=== PATIENT | male | born 1965 | race African-American/Black ===

== ENCOUNTER 2024-08-20 08:22 | Emergency (ER) | payer OTHER, SELFPAY ==
[2024-08-20] VITALS (9 sets, daily range): BP systolic 183–242; BP diastolic 100–121; PULSE 92–109; RESP 18–20; TEMP 37.2–37.4; O2SAT 94–98; BMI 33.2
--- NOTE | 2024-08-20 08:43 | DI.RAD.S_ITS ---
PROCEDURE: XR CHEST 1V INDICATIONS: suspected sepsis TECHNIQUE: One view of the chest was acquired. COMPARISON: None. FINDINGS: Surgical changes and devices: None. Lungs and pleura: Lungs are clear. No pleural effusions or pneumothorax. Mediastinum: Mediastinal contours appear normal. Heart size is normal. Bones and chest wall: No suspicious bony lesions. Overlying soft tissues appear unremarkable. IMPRESSION: No acute cardiopulmonary abnormality is seen. Dictated by: Dheeraj Carson M.D. on 08/20/2024 at 9:24 Approved by: Dheeraj Carson M.D. on 08/20/2024 at 9:24
--- NOTE | 2024-08-20 08:48 | EKG_ITS ---
[facility] [address] [address] Test Date: 2024-08-20 Pat Name: Nelson Valenzuela Department: [facility] Room: Gender: Male [employer]: : [id number] Requested By: Order Number: [id number] Reading MD: Simone Pacheco MD Measurements Intervals [place] Rate: 100 P: 58 MD: 144 QRS: -34 QRSD: 86 T: 18 QT: 354 QTc: 456 Interpretive Statements Normal sinus rhythm Left axis deviation Electronically Signed On 08-20-2024 11:59:01 PST by Simone Pacheco MD
--- NOTE | 2024-08-20 09:34 | ED_ITS ---
HPI - URI/Sore Throat General Chief Complaint: Fever Stated Complaint: Upper respiratory symptoms Time Seen by Provider: 08/20/24 09:33 Source: patient Mode of arrival: Ambulatory History of Present Illness HPI Narrative: Patient is a 58-year-old female with history of hypertension but he has not in his medication for at least 6 months presenting today with fever chills and cough ongoing for 1 week. He states that he traveled to [place] for about 10 days and came back 5 days ago. Since then he has had fever and cough upper respiratory like symptoms. He has had a temperature of 101? at home but is currently 99. He has a slight headache. He does report some pain behind his left ear directly postauricular. No real ear pain reports some popping crackling in his ears as well. He is keeping fluids down he has no nausea or vomiting. But does have some decrease in appetite. Reports he is worried about his blood pressure which is quite elevated with a systolic greater than 200 and a diastolic greater than 100. However he was noncompliant with his medications he has not checked his blood pressure in more than 1 month. Related Data Previous Rx's Medication Instructions Recorded hydrochlorothiazide 25 mg tablet 25 mg PO DAILY #30 tabs 08/20/24 Allergies Allergy/AdvReac Type Severity Reaction Status Date / Time No Known Drug Allergies Allergy Verified 08/20/24 09:39 Patient History Social History Smoking Status: Former smoker Smoking Status: Former smoker Exam Initial Vital Signs Initial Vital Signs: Vital Signs Temperature 99.3 F 08/20/24 08:32 Pulse Rate 109 H 08/20/24 08:32 Respiratory Rate 18 08/20/24 08:32 Blood Pressure 242/121 H 08/20/24 08:32 Pulse Oximetry 98 08/20/24 08:32 Oxygen Delivery Method Room Air 08/20/24 08:32 GENERAL: Alert 58-year-old male and in no acute distress. HEENT: Head atraumatic,EOMI, pupils reactive, face symmetric, moist mucous membranes EAR: Left actual mastoid tenderness tender of further behind Left ear does not show any significant erythema or fluid behind tympanic membrane ear canal is slightly swollen but no gross drainage Right ear is within normal limits NECK: No meningeal signs CARDIOVASCULAR: Regular rate and rhythm without murmurs, rubs or gallops. RESPIRATORY: Breath sounds equal bilaterally, no wheezes rales or rhonchi. No conversational dyspnea ABDOMEN: Soft, nontender. Normoactive bowel sounds all 4 quadrants. No guarding or rebound. EXTREMITIES: Normal range of motion, no clubbing or edema. Neurovascularly intact NEUROLOGICAL: Alert and oriented x4.Normal gait and speech. Cranial nerves II through XII grossly intact. SKIN: Warm, dry, no laceration, no petechiae, no rashes or lesions. Course Orders Ordered: Discontinued Medications Sodium Chloride (Normal Saline 0.9%) 1,000 mls @ 1,000 mls/hr IV BOLUS ONE Stop: 08/20/24 09:42 Last Infusion: 08/20/24 11:37 Dose: Infused Documented By: Admin: 08/20/24 09:35 Dose: 1,000 mls/hr Documented By: AZUCENA Ondansetron HCl (Ondansetron 4 Mg/2 Ml Inj) 4 mg IV NOW PRN PRN Reason: Nausea And Vomiting Ondansetron HCl (Ondansetron 4 Mg Odt) 4 mg SL NOW PRN PRN Reason: Nausea And Vomiting Vital Signs Vital signs: Vital Signs - 8 hr 08/20/24 11:00 08/20/24 11:00 08/20/24 11:02 Temperature 99 F Pulse Rate 97 H Respiratory Rate 20 Blood Pressure 196/118 H Pulse Oximetry 97 08/20/24 11:30 08/20/24 11:30 Temperature Pulse Rate 92 H Respiratory Rate 18 Blood Pressure 191/105 H Pulse Oximetry 94 MDM - URI/Sore Throat Lab Data 08/20/24 09:20 08/20/24 09:20 Labs: Lab Results 08/20/24 08/20/24 Range/Units 08:40 09:20 WBC 11.1 H (4.5-11.0) X10^3/uL RBC 5.61 (4.5-5.9) X10^6/uL Hgb 17.7 H (13.5-17.5) g/dL Hct 50.3 (41-53) % MCV 89.7 (80-100) fL MCH 31.5 (26-34) PG MCHC 35.2 (30-36) % RDW 13.4 (11.6-14.8) % Plt Count 316 (150-400) X10^3/uL Neut % (Auto) 61.1 (50-75) % Lymph % (Auto) 24.5 L (25-40) % [place] % (Auto) 12.3 (3-14) % Eos % (Auto) 1.3 L (2-4) % Baso % (Auto) 0.8 (0-2) % Neut # (Auto) 6800 (1834-9870) /uL Lymph # (Auto) 2700 (3313-1153) /uL [place] # (Auto) 1400 H (0-900) /uL Eos # (Auto) 100 (0-450) /uL Baso # (Auto) 100 (0-100) /uL PT 17.5 H (9.4-12.5) SECONDS INR 1.6 H (0.9-1.3) APTT 51 H (25.1-36.5) SECONDS D-Dimer 958 H (<500) ng/ml Sodium 137 (137-145) mmol/L Potassium 3.6 (3.4-5.1) mmol/L Chloride 101 (98-107) mmol/L Carbon Dioxide 28 (22-32) mmol/L BUN 6 L (9-20) mg/dL Creatinine 0.72 (0.66-1.25) mg/dL Estimated GFR > 60 (>60) mL/min BUN/Creatinine Ratio 8.3 (6-22) Glucose 109 H (70-100) mg/dL Lactate 0.9 (0.7-2.1) mmol/L Calcium 9.0 (8.4-10.2) mg/dL Total Bilirubin 0.9 (0.2-1.3) mg/dL AST 43 (17-59) IU/L ALT 33 (<50) IU/L Alkaline Phosphatase 97 (38-126) U/L Total Protein 10.2 H (6.3-8.2) g/dL Albumin 4.5 (3.5-5.0) g/dL Globulin 5.7 H (1.7-4.1) g/dL Albumin/Globulin Ratio 0.8 L (1.0-2.8) Lipase 82 (23-300) U/L Procalcitonin 0.056 (<0.5) ng/mL Chlamy pneumoniae PCR Not detected (Not Detect) Adenovirus (PCR) Not detected (Not Detect) B. pertussis DNA (PCR) Not detected (Not Detect) B.parapertussis DNA PCR Not detected (Not Detecte) Coronavirus OC43 (PCR) Not detected (Not Detect) Coronavirus HKU1 (PCR) Not detected (Not Detect) Coronavirus 229E (PCR) Not detected (Not Detect) SARS-CoV-2 (PCR) Not detected (Not Detecte) Coronavirus NL63 (PCR) Detected H (Not Detect) Human Metapneumovir PCR Not detected (Not Detect) Influenza Type A (PCR) Not detected (Not Detect) Influenza Type B (PCR) Not detected (Not Detect) M. pneumoniae (PCR) Not detected (Not Detect) Parainfluenza 1 (PCR) Not detected (Not Detect) Parainfluenza 2 (PCR) Not detected (Not Detect) Parainfluenza 3 (PCR) Not detected (Not Detect) Parainfluenza 4 (PCR) Not detected (Not Detect) RSV (PCR) Not detected (Not Detect) Entero/Rhino (PCR) Not detected (Not Detect) Urine Dip Bedside Urine Glucose Negative Bedside Urine Bilirubin - Negative Bedside Urine Ketone - Negative Urine Specific [place] 1.01 Bedside Urine Occult Blood - Negative Bedside Urine pH 6.5 Bedside Urine Protein - Negative Bedside Urine Urobilinogen - Negative Bedside Urine Nitrite - Negative Bedside Urine Leukocytes - Negative Esterase Imaging Data Chest x-ray: Radiologist's Impression: PROCEDURE: XR CHEST 1V INDICATIONS: suspected sepsis TECHNIQUE: One view of the chest was acquired. COMPARISON: None. FINDINGS: Surgical changes and devices: None. Lungs and pleura: Lungs are clear. No pleural effusions or pneumothorax. Mediastinum: Mediastinal contours appear normal. Heart size is normal. Bones and chest wall: No suspicious bony lesions. Overlying soft tissues appear unremarkable. IMPRESSION: No acute cardiopulmonary abnormality is seen. Dictated by: Dheeraj Carson M.D. on 08/20/2024 at 9:24 ECG Data Attestation: I personally reviewed and interpreted this ECG as follows: Prior ECG tracings: not available for review Interpretation: Sinus rhythm rate 100 [place] interval 144 QRS [address] changes some T-wave MDM Narrative Medical decision making narrative: MDM CC: Fever cough Complicating co-morbidities: Hypertension non compliant Medical records reviewed: None Differential considered: Viral, pneumonia, bacterial, pulmonary embolisms Exam documented above, pertinent findings include: Patient appears nontoxic breath sounds are clear no respiratory distress he has not tender on his mastoid, but further down on his neck and behind his head Lab Test results independently reviewed as above. Pertinent findings: D-dimer 953 Respiratory panel positive for coronavirus NL63 WBC 11.1, lactate 0.9, procalcitonin 0.056 Electrolytes within normal limits Independently reviewed EKG as above: Sinus rhythm no ST elevation or ischemic Imaging studies independently reviewed: Chest x-ray no pneumonia Treatments: IV fluids Re-evaluations: Patient is feeling a little bit better he is hemodynamically stable Discussion: Patient 58-year-old male presenting today with upper respiratory like symptoms. He is positive for coronavirus. Evidence of pneumonia or severe sepsis. He does have elevated blood pressure but no evidence of end-organ damage. At this time supportive care only. D-dimer was checked secondary to recent travel he did some fluctuation in oxygen went down to 91% but did not stay there he has not having any sort of significant shortness of breath. D- dimer is elevated but less than 1000 and he has likely other diagnosis of a viral illness. He is also having more symptoms of infection versus pulmonary embolism. At this time I do not think he needs a CT angio. YEARS Algorithm for Pulmonary Embolism (PE) from [employer] on 08/20/2024 All calculations should be rechecked by clinician prior to use RESULT SUMMARY: PE excluded YEARS algorithm rules out PE (0.43% with symptomatic VTE during 3-month follow- up) INPUTS: patient ?> 0 = No Clinical signs of DVT ?> 0 = No Hemoptysis ?> 0 = No PE most likely diagnosis ?> 0 = No D-dimer >=,000 ng/mL FEU ?> 0 = No Discharge Plan Departure Patient Disposition: Home Clinical Impression: Upper respiratory infection, Hypertension Instructions: Essential Hypertension, DI for Viral Upper Respiratory Infection -- Adult Activity Restrictions/Additional Instructions: *You have been diagnosed with high blood pressure, upper respiratory virus *What to do: At this time you do have a virus which is why your head feels congested. Please keep adjusting your ears *Continue to take medications as directed Hydrochlorothiazide 25 daily *Follow up with your primary care provider in 2-3 days or call [phone] Please call and get follow-up with PCP regards to blood pressure *Return to ER if you should have increasing chest pain shortness of breath ear pain[or] any new, worsening or concerning symptoms Prescriptions: New hydrochlorothiazide 25 mg tablet 25 mg PO DAILY Qty: 30 0RF Stand Alone Forms: Patient Portal/API/Survey
[2024-08-20] MEDS: SODIUM CHLORIDE 0.9% 1,000 ML 1000 ML IV (09:35)
[2024-08-20 09:36] LABS: Adenovirus Not Detected (Not Detect); B. parapertussis Not Detected (Not Detecte); Bordetella pertussis Not Detected (Not Detect); Chlamydophila pneumoniae Not Detected (Not Detect); Coronavirus 229E Not Detected (Not Detect); Coronavirus HKU1 Not Detected (Not Detect); Coronavirus NL 63 Detected (Not Detect); Coronavirus OC43 Not Detected (Not Detect); Human Metapneumovirus Not Detected (Not Detect); Human Rhinovirus/Enterovirus Not Detected (Not Detect); Influenza A Not Detected (Not Detect); Influenza B Not Detected (Not Detect); Mycoplasma pneumoniae Not Detected (Not Detect); Parainfluenza Virus 1 Not Detected (Not Detect); Parainfluenza Virus 2 Not Detected (Not Detect); Parainfluenza Virus 3 Not Detected (Not Detect); Parainfluenza Virus 4 Not Detected (Not Detect); Respiratory Syncytial Virus Not Detected (Not Detect); SARS- CoV-2 Not Detected (Not Detecte)
[2024-08-20 09:37] LABS: Add Manual Diff / Slide Review NO; Basophils Absolute Auto 100 /uL (0-100); Basophils Percent Auto 0.8 % (0-2); Eosinophils Absolute Auto 100 /uL (0-450); Eosinophils Percent Auto 1.3 % (2-4); Hematocrit 50.3 % (41-53); Hemoglobin 17.7 g/dL (13.5-17.5); Lymphocytes Absolute Auto 2700 /uL (1100-4500); Lymphocytes Percent Auto 24.5 % (25-40); Mean Corpuscular HGB Conc 35.2 % (30-36); Mean Corpuscular Hemoglobin 31.5 PG (26-34); Mean Corpuscular Volume 89.7 fL (80-100); Monocytes Absolute Auto 1400 /uL (0-900); Monocytes Percent Auto 12.3 % (3-14); Neutrophils Absolute Auto 6800 /uL (1500-7000); Neutrophils Percent Auto 61.1 % (50-75); Platelet Count 316 X10^3/uL (150-400); Red Blood Cell Count 5.61 X10^6/uL (4.5-5.9); Red Cell Distribution Width 13.4 % (11.6-14.8); White Blood Cell Count 11.1 X10^3/uL (4.5-11.0)
[2024-08-20 09:47] LABS: INR 1.6 (0.9-1.3); Prothrombin Time 17.5 SECONDS (9.4-12.5)
[2024-08-20 09:50] LABS: PTT Partial Thromboplastin Tim 51 SECONDS (25.1-36.5)
[2024-08-20 09:51] LABS: Alanine Aminotransferase 33 IU/L (<50); Albumin 4.5 g/dL (3.5-5.0); Albumin Globulin Ratio 0.8 (1.0-2.8); Alkaline Phosphatase 97 U/L (38-126); Aspartate Aminotransferase 43 IU/L (17-59); BUN Creatinine Ratio 8.3 (6-22); Bilirubin Total 0.9 mg/dL (0.2-1.3); Blood Urea Nitrogen 6 mg/dL (9-20); Carbon Dioxide 28 mmol/L (22-32); Chloride 101 mmol/L (98-107); Estimated Glomerular Filt Rate > 60 mL/min (>60); Globulin 5.7 g/dL (1.7-4.1); Glucose 109 mg/dL (70-100); HEMOLYSIS < 15 (0-50); Lipase 82 U/L (23-300); Potassium 3.6 mmol/L (3.4-5.1); Sodium 137 mmol/L (137-145); Total Protein 10.2 g/dL (6.3-8.2)
[2024-08-20 09:52] LABS: Lactate (Lactic Acid) 0.9 mmol/L (0.7-2.1)
[2024-08-20 09:55] LABS: D Dimer 958 ng/ml (<500)
[2024-08-20 10:08] LABS: Procalcitonin 0.056 ng/mL (<0.5)
== END 2024-08-20 11:36 | disposition home or self-care (01) ==
PROVIDERS: Emergency Provider Emergency Medicine
DX: J06.9 Acute upper respiratory infection, unspecified (principal); B34.2 Coronavirus infection, unspecified; I10 Essential (primary) hypertension; R05.9 Cough, unspecified
CPT/HCPCS: 36415; 71045; 80053; 81003; 83605; 83690; 84145; 85025; 85379; 85610; 85730; 87040; 87633; 93005; 93010; 96360; 96361; 99284

== ENCOUNTER 2024-11-16 22:43 | Emergency (ER) | payer OTHER, SELFPAY ==
[2024-11-16 22:56] VITALS: BP 217/121; PULSE 111; RESP 19; TEMP 37.1; O2SAT 96; BMI 32.1
[2024-11-16 23:19] VITALS: BP 188/106; PULSE 108; O2SAT 99
[2024-11-16 23:29] LABS: Add Manual Diff / Slide Review NO; Basophils Absolute Auto 100 /uL (0-100); Eosinophils Absolute Auto 100 /uL (0-450); Eosinophils Percent Auto 1.4 % (2-4); Hematocrit 47.8 % (41-53); Hemoglobin 16.9 g/dL (13.5-17.5); Lymphocytes Absolute Auto 2300 /uL (1100-4500); Mean Corpuscular HGB Conc 35.5 % (30-36); Mean Corpuscular Hemoglobin 31.5 PG (26-34); Mean Corpuscular Volume 88.8 fL (80-100); Monocytes Absolute Auto 900 /uL (0-900); Monocytes Percent Auto 11.4 % (3-14); Neutrophils Absolute Auto 4500 /uL (1500-7000); Neutrophils Percent Auto 57.2 % (50-75); Platelet Count 261 X10^3/uL (150-400); Red Blood Cell Count 5.38 X10^6/uL (4.5-5.9); White Blood Cell Count 7.8 X10^3/uL (4.5-11.0)
[2024-11-16 23:30] VITALS: BP 179/98; PULSE 114; RESP 12; O2SAT 97
[2024-11-16 23:35] LABS: INR 1.6 (0.9-1.3)
[2024-11-16 23:37] LABS: PTT Partial Thromboplastin Tim 40 SECONDS (25.1-36.5)
[2024-11-16 23:39] LABS: Alanine Aminotransferase 76 IU/L (<50); Albumin 4.7 g/dL (3.5-5.0); BUN Creatinine Ratio 15.1 (6-22); Bilirubin Total 0.7 mg/dL (0.2-1.3); Blood Urea Nitrogen 11 mg/dL (9-20); Calcium 9.1 mg/dL (8.4-10.2); Carbon Dioxide 29 mmol/L (22-32); Chloride 101 mmol/L (98-107); Estimated Glomerular Filt Rate > 60 mL/min (>60); Globulin 4.8 g/dL (1.7-4.1); Glucose 109 mg/dL (70-100); Lactate (Lactic Acid) 1.4 mmol/L (0.7-2.1); Sodium 138 mmol/L (137-145); Total Protein 9.5 g/dL (6.3-8.2)
[2024-11-16 23:40] LABS: HEMOLYSIS 56 (0-50)
[2024-11-16 23:41] LABS: Alkaline Phosphatase 81 U/L (38-126); Aspartate Aminotransferase 78 IU/L (17-59); Potassium 3.7 mmol/L (3.4-5.1)
[2024-11-17] VITALS (33 sets, daily range): BP systolic 73–199; BP diastolic 43–96; PULSE 74–118; RESP 14–39; TEMP 36.7–36.9; O2SAT 93–100
--- NOTE | 2024-11-17 00:46 | ED_ITS ---
HPI - GI Bleed General Chief complaint: GI Bleed Stated complaint: bloody stool dark red Time Seen by Provider: 11/16/24 23:16 Source: patient Mode of arrival: Ambulatory History of Present Illness HPI Narrative: Patient is a 59-year-old male history of hypertension presenting to day with rectal bleeding. He reports that he has had 4 episodes of bright red blood per rectum. He actually just had the 4th 1 in the emergency department and it was quite bright red and filled whole hat. He was some mild cramping. Denies any dizziness or lightheadedness. Reports that he is due for a colonoscopy next year but had a clean 1 last time. Not on any antiplatelet or anticoagulation medications. Denies any nausea vomiting or significant pain. Related Data Previous Rx's Medication Instructions Recorded hydrochlorothiazide 25 mg tablet 25 mg PO DAILY #30 tabs 08/20/24 Allergies Allergy/AdvReac Type Severity Reaction Status Date / Time No Known Drug Allergies Allergy Verified 08/20/24 09:39 Exam Initial Vital Signs Initial Vital Signs: Vital Signs Temperature 98.7 F 11/16/24 22:56 Pulse Rate 111 H 11/16/24 22:56 Respiratory Rate 19 11/16/24 22:56 Blood Pressure 217/121 H 11/16/24 22:56 Pulse Oximetry 96 11/16/24 22:56 Oxygen Delivery Method Room Air 11/16/24 22:56 GENERAL: Alert very pleasant 51-year-old male and in [no acute] distress. HEENT: Head atraumatic,EOMI, pupils reactive, face symmetric, [moist] mucous membranes CARDIOVASCULAR: Regular rate and rhythm without murmurs, rubs or gallops. RESPIRATORY: Breath sounds equal bilaterally, no wheezes rales or rhonchi. ABDOMEN: Soft, minimally tender no guarding no rebound EXTREMITIES: Normal range of motion, no clubbing or edema. Neurovascularly intact NEUROLOGICAL: Alert and oriented x4.Normal gait and speech. Cranial nerves II through XII grossly intact. SKIN: Warm, dry, no laceration, no petechiae, no rashes or lesions. Course Orders Ordered: ED Orders 11/16/24 23:13 CBC Auto Diff [Complete Blood Count AUTO DIFF] Stat CMP [Comprehensive Metabolic Panel] Stat Lactate (Lactic Acid) Stat PT [Prothrombin Time INR] Stat PTT Partial Thromboplastin Nehemiah Stat 11/17/24 00:46 CT angio Abd/Pel GI Bleed Stat 11/17/24 00:57 Hemoglobin and Hematocrit Stat 11/17/24 02:19 PRBC [Packed Cells] Stat Type and Screen Stat 11/17/24 02:25 Hemoglobin and Hematocrit Stat Lactate (Lactic Acid) Stat 11/17/24 02:41 EKG-12 Lead Stat 11/17/24 02:50 Troponin & CK Cardiac Panel Stat Discontinued Medications Sodium Chloride (Normal Saline 0.9%) 1,000 mls @ 1,000 mls/hr IV BOLUS ONE Stop: 11/17/24 03:20 Last Infusion: 11/17/24 03:19 Dose: Infused Documented By: Admin: 11/17/24 02:26 Dose: 1,000 mls/hr Documented By: CAMILLE Ondansetron HCl (Ondansetron 4 Mg/2 Ml Inj) 4 mg IV NOW ONE Stop: 11/17/24 02:22 Last Admin: 11/17/24 02:26 Dose: 4 mg Documented By: CAMILLE Pantoprazole Sodium (Pantoprazole 40 Mg Vial) 80 mg IV NOW ONE Stop: 11/17/24 00:47 Last Admin: 11/17/24 01:16 Dose: 80 mg Documented By: IVY Vital Signs Vital signs: Vital Signs - 8 hr 11/16/24 22:56 11/16/24 23:19 11/16/24 23:19 Temperature 98.7 F Pulse Rate 111 H 108 H Respiratory Rate 19 Blood Pressure 217/121 H 188/106 H Pulse Oximetry 96 99 Oxygen Delivery Method Room Air 11/16/24 23:30 11/16/24 23:30 11/17/24 00:00 Temperature Pulse Rate 114 H 115 H Respiratory Rate 12 16 Blood Pressure 179/98 H Pulse Oximetry 97 97 Oxygen Delivery Method Room Air 11/17/24 00:00 11/17/24 00:30 11/17/24 01:12 Temperature Pulse Rate 117 H 109 H Respiratory Rate 24 Blood Pressure 185/94 H Pulse Oximetry 98 96 Oxygen Delivery Method 11/17/24 01:17 11/17/24 01:17 11/17/24 01:18 Temperature Pulse Rate 110 H 114 H Respiratory Rate 18 18 Blood Pressure 199/96 H Pulse Oximetry 98 99 Oxygen Delivery Method Room Air 11/17/24 01:18 11/17/24 01:30 11/17/24 01:30 Temperature Pulse Rate 113 H Respiratory Rate 20 Blood Pressure 199/95 H 180/87 H Pulse Oximetry 98 Oxygen Delivery Method 11/17/24 02:06 11/17/24 02:07 11/17/24 02:07 Temperature Pulse Rate 117 H 118 H Respiratory Rate 16 Blood Pressure 144/95 H Pulse Oximetry 96 97 Oxygen Delivery Method 11/17/24 02:21 11/17/24 02:21 11/17/24 02:25 Temperature Pulse Rate 74 Respiratory Rate 18 Blood Pressure 73/43 L 87/53 L Pulse Oximetry 98 Oxygen Delivery Method 11/17/24 02:25 11/17/24 02:27 11/17/24 02:27 Temperature Pulse Rate 87 90 Respiratory Rate 16 15 Blood Pressure 88/52 L Pulse Oximetry 97 98 Oxygen Delivery Method 11/17/24 02:28 11/17/24 02:28 11/17/24 02:30 Temperature Pulse Rate 90 93 H Respiratory Rate 14 23 Blood Pressure 89/50 L Pulse Oximetry 99 97 Oxygen Delivery Method 11/17/24 02:32 11/17/24 02:32 11/17/24 02:36 Temperature Pulse Rate 91 H Respiratory Rate 21 Blood Pressure 121/69 120/72 Pulse Oximetry 100 Oxygen Delivery Method 11/17/24 02:36 11/17/24 02:38 11/17/24 02:40 Temperature 98.0 F Pulse Rate 91 H 92 H 91 H Respiratory Rate 23 18 29 H Blood Pressure 120/72 Pulse Oximetry 99 98 Oxygen Delivery Method 11/17/24 02:40 11/17/24 02:44 11/17/24 02:44 Temperature Pulse Rate 91 H Respiratory Rate 20 Blood Pressure 126/79 142/81 H Pulse Oximetry 96 Oxygen Delivery Method 11/17/24 02:48 11/17/24 02:48 11/17/24 02:52 Temperature Pulse Rate 90 91 H Respiratory Rate 39 H 24 Blood Pressure 146/78 H Pulse Oximetry 97 99 Oxygen Delivery Method Room Air Room Air 11/17/24 02:52 11/17/24 02:53 11/17/24 02:56 Temperature 98.4 F Pulse Rate 93 H 95 H Respiratory Rate 23 24 Blood Pressure 143/79 H 143/79 H Pulse Oximetry 96 Oxygen Delivery Method Room Air 11/17/24 02:56 11/17/24 03:00 11/17/24 03:00 Temperature Pulse Rate 92 H Respiratory Rate 17 Blood Pressure 144/83 H 144/84 H Pulse Oximetry 98 Oxygen Delivery Method Room Air 11/17/24 03:15 11/17/24 03:15 11/17/24 03:30 Temperature Pulse Rate 99 H 102 H Respiratory Rate 19 16 Blood Pressure 148/90 H Pulse Oximetry 98 93 Oxygen Delivery Method Room Air Room Air 11/17/24 03:30 11/17/24 03:45 11/17/24 03:45 Temperature Pulse Rate 102 H Respiratory Rate 16 Blood Pressure 129/73 120/71 Pulse Oximetry 96 Oxygen Delivery Method Room Air 11/17/24 04:00 11/17/24 04:00 11/17/24 04:15 Temperature Pulse Rate 99 H 97 H Respiratory Rate 16 16 Blood Pressure 112/66 Pulse Oximetry 95 95 Oxygen Delivery Method Room Air Room Air 11/17/24 04:15 11/17/24 04:30 11/17/24 04:30 Temperature Pulse Rate 96 H Respiratory Rate 15 Blood Pressure 120/65 110/59 L Pulse Oximetry 95 Oxygen Delivery Method 11/17/24 04:37 11/17/24 04:37 11/17/24 04:43 Temperature 98.4 F Pulse Rate 101 H 101 H Respiratory Rate 16 19 Blood Pressure 118/77 118/77 Pulse Oximetry 97 Oxygen Delivery Method 11/17/24 04:45 11/17/24 04:45 11/17/24 05:00 Temperature Pulse Rate 101 H 97 H Respiratory Rate 14 14 Blood Pressure 133/69 Pulse Oximetry 97 95 Oxygen Delivery Method 11/17/24 05:00 Temperature Pulse Rate Respiratory Rate Blood Pressure 125/70 Pulse Oximetry Oxygen Delivery Method MDM - GI Bleed Lab Data 11/17/24 02:25 11/16/24 23:13 Labs: Lab Results 11/16/24 11/17/24 11/17/24 Range/Units 23:13 00:57 02:25 WBC 7.8 (4.5-11.0) X10^3/uL RBC 5.38 (4.5-5.9) X10^6/uL Hgb 16.9 16.0 14.8 (13.5-17.5) g/dL Hct 47.8 44.8 42.0 (41-53) % MCV 88.8 (80-100) fL MCH 31.5 (26-34) PG MCHC 35.5 (30-36) % RDW 14.0 (11.6-14.8) % Plt Count 261 (150-400) X10^3/uL Neut % (Auto) 57.2 (50-75) % Lymph % (Auto) 29.0 (25-40) % [place] % (Auto) 11.4 (3-14) % Eos % (Auto) 1.4 L (2-4) % Baso % (Auto) 1.0 (0-2) % Neut # (Auto) 4500 (2541-3896) /uL Lymph # (Auto) 2300 (5927-9613) /uL [place] # (Auto) 900 (0-900) /uL Eos # (Auto) 100 (0-450) /uL Baso # (Auto) 100 (0-100) /uL PT 18.0 H (9.4-12.5) SECONDS INR 1.6 H (0.9-1.3) APTT 40 H (25.1-36.5) SECONDS Sodium 138 (137-145) mmol/L Potassium 3.7 (3.4-5.1) mmol/L Chloride 101 (98-107) mmol/L Carbon Dioxide 29 (22-32) mmol/L BUN 11 (9-20) mg/dL Creatinine 0.73 (0.66-1.25) mg/dL Estimated GFR > 60 (>60) mL/min BUN/Creatinine Ratio 15.1 (6-22) Glucose 109 H (70-100) mg/dL Lactate 1.4 1.7 (0.7-2.1) mmol/L Calcium 9.1 (8.4-10.2) mg/dL Total Bilirubin 0.7 (0.2-1.3) mg/dL AST 78 H (17-59) IU/L ALT 76 H (<50) IU/L Alkaline Phosphatase 81 (38-126) U/L Total Creatine Kinase (55-170) U/L Troponin I (0.01-0.034) ng/mL Total Protein 9.5 H (6.3-8.2) g/dL Albumin 4.7 (3.5-5.0) g/dL Globulin 4.8 H (1.7-4.1) g/dL Albumin/Globulin Ratio 1.0 (1.0-2.8) Blood Type O Positive Antibody Screen Negative Crossmatch See Detail 11/17/24 Range/Units 02:50 WBC (4.5-11.0) X10^3/uL RBC (4.5-5.9) X10^6/uL Hgb (13.5-17.5) g/dL Hct (41-53) % MCV (80-100) fL MCH (26-34) PG MCHC (30-36) % RDW (11.6-14.8) % Plt Count (150-400) X10^3/uL Neut % (Auto) (50-75) % Lymph % (Auto) (25-40) % [place] % (Auto) (3-14) % Eos % (Auto) (2-4) % Baso % (Auto) (0-2) % Neut # (Auto) (2313-2047) /uL Lymph # (Auto) (4348-0170) /uL [place] # (Auto) (0-900) /uL Eos # (Auto) (0-450) /uL Baso # (Auto) (0-100) /uL PT (9.4-12.5) SECONDS INR (0.9-1.3) APTT (25.1-36.5) SECONDS Sodium (137-145) mmol/L Potassium (3.4-5.1) mmol/L Chloride (98-107) mmol/L Carbon Dioxide (22-32) mmol/L BUN (9-20) mg/dL Creatinine (0.66-1.25) mg/dL Estimated GFR (>60) mL/min BUN/Creatinine Ratio (6-22) Glucose (70-100) mg/dL Lactate (0.7-2.1) mmol/L Calcium (8.4-10.2) mg/dL Total Bilirubin (0.2-1.3) mg/dL AST (17-59) IU/L ALT (<50) IU/L Alkaline Phosphatase (38-126) U/L Total Creatine Kinase 305 H (55-170) U/L Troponin I < 0.012 (0.01-0.034) ng/mL Total Protein (6.3-8.2) g/dL Albumin (3.5-5.0) g/dL Globulin (1.7-4.1) g/dL Albumin/Globulin Ratio (1.0-2.8) Blood Type Antibody Screen Crossmatch Imaging Data CT scan - abdomen/pelvis: Radiologist's Impression: Active contrast extravasation into bowel lumen with an ascending colon on arterial phase imaging that increases on delayed phase, consistent with active hemorrhage Subtle nodularity of the liver surface it indicate mild early cirrhosis ECG Data Attestation: I personally reviewed and interpreted this ECG as follows: Interpretation: Normal sinus rhythm rate 92 MI interval 154 QRS 78 QTC 462 MDM Narrative Medical decision making narrative: Patient 59-year-old male history of hypertension presenting today with rectal bleeding. He had 1 large liquid bloody bowel movement here in the ED. He has been persistently tachycardic. Blood work has been reviewed WBC is 7.8 hemoglobin 16.9 hematocrit 47.8 with repeat 16/44.8-->14.8/42 Lactate 1.4-->1.7 Electrolytes within normal limits, creatinine 0.7 Bilirubin 0.7 AST 70 ALT 76 Medications: Protonix 80mg, Zofran 4 mg, normal saline 0200 general surgery updated on patient's symptoms test results vitals. Reports give IV fluids will likely need IR in transfer. 0215 patient returns from bathroom after having his 2nd large liquid bloody bowel movement blood pressure dropped into the 70s heart rate which was tachycardic now decreased into the 70s as well very lightheaded dizzy diaphoretic. Certainly concern for hemorrhagic shock ongoing blood loss. Patient is transfused 1 unit of uncross matched blood. Patient was placed in Trendelenburg position to IV started repeat blood work pending. Blood pressure quickly improved 0227 Dr. Gore surgery again updated on patient's decline and instability reports that he still needs to be transferred to higher level of care and he was unable to provide assistance 0300 Bp stabilizing pressure in the 140s heart rate 96 patient no longer nauseous not having any pain or cramping 314Dr. Zavala, GI at [facility], updated patient's symptoms test results request that speak to Interventional Radiology ok to transfer and admit to hospitalist 0430 accepts patient Patient remained stable blood pressure 120/65 heart rate 97 Critical Care Time Critical Care Time Critical Care Time: Yes Total Critical Care Time: 39 Attestation: The high probability of a clinically significant, sudden or life threatening deterioration of the [cardiovascular] system(s) required my full and direct attention, intervention and personal management. The aggregate critical care time was 39 minutes. This time is in addition to time spent performing reported procedures but includes the following: [x] Data Review and interpretation [x] Patient assessment and monitoring of vital signs [x] Documentation [x] Medication orders and management Discharge Plan Departure Patient Disposition: [facility] Clinical Impression: Lower gastrointestinal hemorrhage Prescriptions: No Action hydrochlorothiazide 25 mg tablet 25 mg PO DAILY Qty: 30 0RF
--- NOTE | 2024-11-17 00:46 | DI.CT.S_ITS ---
PROCEDURE: CT ANGIO ABD/PEL GI BLEED INDICATIONS: GI Bleed TECHNIQUE: After the administration of intravenous contrast, 2.5 mm thick sections acquired from the diaphragm to the symphysis. 10 mm maximum-intensity projection (MIP) reformats were then acquired. For radiation dose reduction, the following was used: automated exposure control. COMPARISON: None. FINDINGS: Image Quality: Diagnostic. Abdominal aorta: No aortic aneurysm or evidence of acute aortic syndrome. Mesenteric arteries: Patent without hemodynamically significant stenosis. Renal arteries: Patent without hemodynamically significant stenosis. OTHER: Lower Chest: No significant findings. Liver: No solid mass. Possible subtle nodularity of the liver surface. Gallbladder: No radiopaque gallstones or wall thickening. Biliary ducts: No biliary dilation. Pancreas: No ductal dilation. Spleen: Size is within normal limits. Adrenal Glands: No adrenal nodules. Kidneys and Ureters: No hydronephrosis. No solid mass. No complex renal cystic lesion which requires follow up. Stomach and Bowel: Hyperdense material is seen in the rectum on precontrast images. Multiple colonic diverticula without signs of acute diverticulitis. Normal appendix. Small bowel loops and stomach are unremarkable. Active extravasation of contrast material is seen into the bowel lumen within the ascending colon approximately 4.7 cm distal to the ileocecal junction. Increased luminal contrast material is seen on more delayed imaging. Peritoneum: No abnormal intraperitoneal fluid. No free air. Ventral Wall: No hernia. Abdominal Nodes: No retroperitoneal or mesenteric adenopathy by size criteria. Vessels: Aorta and inferior vena cava are normal in size. PELVIS: Pelvic Organs: Unremarkable. Bladder: Unremarkable. Pelvic Nodes: No enlarged lymph nodes. Miscellaneous: Small fat containing left inguinal hernia. Bones: No aggressive osseous abnormality. IMPRESSION: 1. Active contrast extravasation into the bowel lumen within the ascending colon on arterial phase imaging that increases on delayed phase, consistent with active hemorrhage. 2. Subtle nodularity of the liver surface could indicate mild early cirrhosis. Finding of active GI hemorrhage was discussed with the referring provider, Dr. Chaparro, by telephone on 11/17/2024 at 1:52 AM. Approved by: Nazario Back M.D. on 11/17/2024 at 1:53
--- NOTE | 2024-11-17 01:00 | PC.NURSE ---
Repeat labs drawn from existing IV line without difficulty.
[2024-11-17 01:03] LABS: Hematocrit 44.8 % (41-53)
[2024-11-17] MEDS: PANTOPRAZOLE 40 MG VIAL 80 MG IV (01:16)
--- NOTE | 2024-11-17 02:25 | PC.NURSE ---
rn responding to room call light. Pt states he is becoming nauseous. RN notes heart rate and blood pressure are lower than they have been running. Verbal order for Zofran 1 dose to be given. Upon reentry to patients room pt noted to be diaphoretic, heart rate is now 60's, hypotensive, and pt is complaining of being hot. Also noted to be slightly confused. Dr. Chaparro called to bedside. Pt placed in trendelenburg, 2nd IV line placed with labs drawn, EKG completed, NS bolus started and order for 1 uncrossmatched unit at this time. called to bedside. Episode lasts approx 5 minutes. Pts vs begin to stabilize. Pt becomes more comfortable and back to base line mentation.
[2024-11-17] MEDS: SODIUM CHLORIDE 0.9% 1,000 ML 1000 ML IV (02:26)
[2024-11-17] MEDS: ONDANSETRON 4 MG/2 ML INJ IV (02:26)
--- NOTE | 2024-11-17 02:40 | PC.NURSE ---
At 0220 RN responding to pt call light. Pt complaining of nausea and feeling hot. Verbal order for Zofran given. Upon return to pts room noted blood pressure and pule were dropping, pt diaphoretic, and slightly confused. Dr. Chaparro called to bedside. Pt placed in trendelenburg, 2nd IV placed with new labs drawn, 1L NS via pressure bag hung and 1 unit uncrossmatched blood at this time. Episode lasts approx 10 minutes. VS normalize, pt states no longer feeling hot, no longer diaphoretic, and return to previously baseline mentation.
[2024-11-17 02:42] LABS: Hemoglobin 14.8 g/dL (13.5-17.5)
--- NOTE | 2024-11-17 02:45 | EKG_ITS ---
[facility] [address] [address] Test Date: 2024-11-17 Pat Name: Nelson Valenzuela Department: [facility] Room: Gender: Male [employer]: : 1965 Requested By: Order Number: [id number] Reading MD: Simone Pacheco MD Measurements Intervals [place] Rate: 92 P: 59 MS: 154 QRS: -17 QRSD: 78 T: 0 QT: 374 QTc: 462 Interpretive Statements Normal sinus rhythm Electronically Signed On 11-17-2024 6:52:43 PDT by Simone Pacheco MD
[2024-11-17 02:59] LABS: Lactate (Lactic Acid) 1.7 mmol/L (0.7-2.1)
[2024-11-17 03:15] LABS: Creatine Kinase 305 U/L (55-170)
[2024-11-17 03:28] LABS: Troponin I < 0.012 ng/mL (0.01-0.034)
== END 2024-11-17 05:33 | disposition short-term general hospital (02) ==
PROVIDERS: Emergency Provider Emergency Medicine
DX: K92.2 Gastrointestinal hemorrhage, unspecified (principal); R00.0 Tachycardia, unspecified; I95.9 Hypotension, unspecified
CPT/HCPCS: 36415; 36430; 74174; 80053; 82550; 83605; 84484; 85014; 85018; 85025; 85610; 85730; 86850; 86900; 86901; 93005; 93010; 96361; 96374; 96375; 99285; 99291; P9016; J2405; J2470; Q9967